=== PATIENT | female | born 1965 | race Caucasian/White ===

== ENCOUNTER → 2018-01-18 | Outpatient (CLI) | payer BC ==
--- NOTE | 2018-01-27 12:20 | MM ---
Reason for exam: additional evaluation requested from prior study. Last mammogram was performed 1 year and 5 months ago. History: Patient history of breast cancer. Family history of breast cancer in maternal aunt and breast cancer in maternal cousin. Benign excisional biopsy of the left breast, 2016. Lumpectomy of the left breast, 2010. Lumpectomy of the right breast, 2009. Chemotherapy, 2009. Taking hormonal contraceptives for 35 years. Physical Findings: Nurse did not find any significant physical abnormalities on exam. MG 3D Diag Mammo W/Cad APOLINAR Bilateral CC and MLO view(s) were taken. Prior study comparison: August 03, 2016, mammogram, performed at [place]. July 31, 2016, mammogram, performed at [place]. The breast tissue is heterogeneously dense. This may lower the sensitivity of mammography. Nodular density upper outer quadrant left breast. These results were verbally communicated with the patient on 01/26/18. ASSESSMENT: Incomplete: need additional imaging evaluation, BI-RAD 0 RECOMMENDATION: Ultrasound of the left breast. [facility] will attempt to contact patient to return for ultrasound.
== END | disposition home or self-care (01) ==
LOC: RADMAMWWP 10:50
PROVIDERS: ATTEND Family Medicine
DX: C50.411 Malignant neoplasm of upper-outer quadrant of right female breast (principal)
CPT/HCPCS: 77062; 77066

== ENCOUNTER → 2018-02-08 | Outpatient (CLI) | payer BC ==
--- NOTE | 2018-02-08 10:55 | USB ---
Reason for exam: additional evaluation requested from abnormal screening. History: Patient history of breast cancer. Family history of breast cancer in maternal aunt and breast cancer in maternal cousin. Benign excisional biopsy of the left breast, 2016. Lumpectomy of the left breast, 2010. Lumpectomy of the right breast, 2009. Chemotherapy, 2009. Taking hormonal contraceptives for 35 years. US Breast Workup Limited LT Right limited breast ultrasound including focal area of concern, retroareolar and axilla demonstrates a 6 x 4 x 5mm oval, cystic lesion at 3 o'clock, benign, corresponds to the mammographic finding. These results were verbally communicated with the patient and result sheet given to the patient on 02/08/18. ASSESSMENT: Benign, BI-RAD 2 RECOMMENDATION: Routine screening mammogram of both breasts in 1 year.
== END | disposition home or self-care (01) ==
LOC: RADUSWWP 09:44
PROVIDERS: ATTEND Family Medicine
DX: R92.8 Other abnormal and inconclusive findings on diagnostic imaging of breast (principal)

== ENCOUNTER 2018-03-09 09:10 | Day surgery (SDC) | payer BC ==
[2018-03-08 09:10] VITALS: BMI 30.2
[~2018-03-09 09:10] MED LIST: LACTATED RINGERS 1,000 ML IV SCH
[2018-03-09 10:17] VITALS: TEMP 97.6
[2018-03-09] MEDS ORDERED: LIDOCAINE 1% 20 ML VIAL (10MG/ML) FOR IV START INTRADERMA ONE (10:30)
[2018-03-09] MEDS ORDERED: LIDOCAINE 1% INJ 10MG/ML (20 ML MDV) ONE (10:40)
[2018-03-09] MEDS ORDERED: PROPOFOL 10 MG/ML 20 ML VIAL IV ONE (10:40)
--- NOTE | 2018-03-09 10:51 | P.PCN ---
Date of Procedure: 03/09/18 Procedure(s) Performed: BRIEF HISTORY: Patient is a 53-year-old, pleasant, white female, scheduled for an upper endoscopy as a part of evaluation of long-standing history of GERD and Reeves's esophagus diagnosed several years ago when she was living in [place]. For the last few months she is been having worsening symptoms as she has been off the Prilosec which she was on for almost 10 years. She also completed severe intermittent dysphagia to solids.. PROCEDURE PERFORMED: Esophagogastroduodenoscopy with biopsy. PREOPERATIVE DIAGNOSIS: GERD/intermittent dysphagia to solids/history of Reeves 's esophagus. IV sedation per anesthesia. PROCEDURE: After informed consent was obtained, the patient was brought into the endoscopy unit. IV sedation was administered by Anesthesia under continuous monitoring. Initially the Olympus GIF-140 video endoscope was inserted into the mouth. Esophagus intubated without any difficulty. It was gradually advanced into the stomach and duodenum and carefully examined. The bulb and the second part of the duodenum appeared normal. The scope at this time was withdrawn to the stomach, adequately insufflated with air, and upon careful examination, mucosa of the antrum, body, cardia and the fundus appeared normal. The scope was then withdrawn into the esophagus. The GE junction was located at 35 cm from the incisors. They revealed linear erosions and one superficial ulceration at the GE junction consistent with LA grade C reflux esophagitis. There was early esophagus which are identified which did not impede the passage of the scope. Biopsies were done from the distal esophagus. The rest of the esophagus appeared normal. There was no evidence of Reeves's esophagus. Patient tolerated the procedure well. IMPRESSION: 1. Linear erosions with a superficial ulceration in the distal esophagus consistent with LA grade C reflux esophagitis. 2. Small hiatal hernia and early esophageal stricture. RECOMMENDATIONS: The findings of this examination were discussed with the patient as well as a family. She was advised to follow with the biopsy results. She will continue with Prilosec 20 mg twice daily and follow antireflux measures.. She will be seen in office in 2 months
[2018-03-09 11:04] VITALS: RESP 16
[2018-03-09 11:59] VITALS: BP 119/82; PULSE 74
== END 2018-03-09 12:07 | disposition home or self-care (01) ==
LOC: ORWHC2ENDO 09:10
PROVIDERS: ATTEND Internal Medicine Gastroenterology
DX: K22.10 Ulcer of esophagus without bleeding (principal); K21.0 Gastro-esophageal reflux disease with esophagitis; K44.9 Diaphragmatic hernia without obstruction or gangrene; K22.2 Esophageal obstruction; Z79.3 Long term (current) use of hormonal contraceptives; Z87.19 Personal history of other diseases of the digestive system
CPT/HCPCS: 81025; 88305; 43239; J2001; J2704

== ENCOUNTER 2019-01-27 10:21 | Day surgery (SDC) | payer BC ==
[2019-01-25 14:41] VITALS: BMI 30.9
[~2019-01-27 10:21] MED LIST changes: +LIDOCAINE 1% 20 ML VIAL (10MG/ML) FOR IV START INTRADERMA PRN
[2019-01-27 10:36] VITALS: TEMP 97.8
[2019-01-27] MEDS ORDERED: LACTATED RINGERS 1,000 ML IV ONE (10:36)
[2019-01-27] MEDS ORDERED: PROPOFOL 10 MG/ML 20 ML VIAL IV ONE (11:19)
--- NOTE | 2019-01-27 12:06 | P.PCN ---
Date of Procedure: 01/27/19 Procedure(s) Performed: BRIEF HISTORY: Patient is a 54-year-old, pleasant, white female, scheduled for an upper endoscopy as a part of evaluation of long-standing history of GERD for 10 years duration. She is been on Prevacid 20 mg daily and was doing well. She was also diagnosed with Reeves's esophagus while and upon your but 5 years ago. She is scheduled for repeat upper endoscopy to evaluate further.. PROCEDURE PERFORMED: Esophagogastroduodenoscopy with biopsy. PREOPERATIVE DIAGNOSIS: Long-standing history of GERD. IV sedation per anesthesia. PROCEDURE: After informed consent was obtained, the patient was brought into the endoscopy unit. IV sedation was administered by Anesthesia under continuous monitoring. Initially the Olympus GIF-140 video endoscope was inserted into the mouth. Esophagus intubated without any difficulty. It was gradually advanced into the stomach and duodenum and carefully examined. The bulb and the second part of the duodenum appeared normal. The scope at this time was withdrawn to the stomach, adequately insufflated with air, and upon careful examination, mucosa of the antrum had mild gastritis and biopsies were done from this area. The, body, cardia and the fundus appeared normal. The scope was then withdrawn into the esophagus. Small hiatal hernia noted. The GE junction was located at 39 cm from the incisors. The esophagus appeared normal. There were no erosions or ulcerations seen and the patient tolerated the procedure well. IMPRESSION: 1. Small sliding Hiatal hernia but no evidence of esophagitis or Reeves's esophagus. 2. Mild antral gastritis. RECOMMENDATIONS: The findings of this examination were discussed with the patient as well as a family. She will follow with the biopsy results. She was advised to continue with Prilosec 20 mg daily and follow antireflux measures.
[2019-01-27] MEDS ORDERED: MIDAZOLAM 2 MG/2 ML VIAL IV ONE ×2 (12:15)
[2019-01-27 12:17] VITALS: RESP 16
[2019-01-27 12:35] VITALS: BP 118/77; PULSE 76
== END 2019-01-27 12:46 | disposition home or self-care (01) ==
LOC: ORWHC2ENDO 10:21
PROVIDERS: ATTEND Internal Medicine Gastroenterology
DX: K29.50 Unspecified chronic gastritis without bleeding (principal); K21.0 Gastro-esophageal reflux disease with esophagitis; K44.9 Diaphragmatic hernia without obstruction or gangrene; J45.909 Unspecified asthma, uncomplicated; Z91.040 Latex allergy status; Z91.048 Other nonmedicinal substance allergy status; Z79.899 Other long term (current) drug therapy; Z87.19 Personal history of other diseases of the digestive system
CPT/HCPCS: 81025; 88305; 43239; J2250; J2704

== ENCOUNTER → 2019-03-24 | Outpatient (CLI) | payer BC ==
--- NOTE | 2019-03-24 09:44 | MM ---
Reason for exam: additional evaluation requested from prior study. Last mammogram was performed 1 year and 2 months ago. History: Patient has history of other cancer at age 54 and has history of breast cancer at age 24. Family history of breast cancer in maternal aunt at age 40 and breast cancer in maternal cousin. Benign excisional biopsy of the left breast, 2016. Lumpectomy of the left breast, 2010. Lumpectomy of the right breast, 2009. Chemotherapy, 2009. Took hormonal contraceptives for 35 years. Physical Findings: Nurse did not find any significant physical abnormalities on exam. MG Diagnostic Mammo w CAD APOLINAR Bilateral CC and MLO view(s) were taken. Prior study comparison: January 18, 2018, bilateral MG 3d diag mammo w/cad APOLINAR. August 03, 2016, mammogram, performed at [place]. The breast tissue is heterogeneously dense. This may lower the sensitivity of mammography. Left biopsy marker. These results were verbally communicated with the patient and result sheet given to the patient on 03/24/19. ASSESSMENT: Negative, BI-RAD 1 RECOMMENDATION: Follow-up diagnostic mammogram of both breasts in 1 year.
== END | disposition home or self-care (01) ==
LOC: RADMAMWWP 02-20 16:33
PROVIDERS: ATTEND Obstetrics & Gynecology Obstetrics
DX: Z08 Encounter for follow-up examination after completed treatment for malignant neoplasm (principal); Z85.3 Personal history of malignant neoplasm of breast
CPT/HCPCS: 77066

== ENCOUNTER 2019-10-31 22:49 | Emergency (ER) | payer BC ==
[2019-10-31 23:52] LABS: Basophils # (A) 0.1 k/uL (0-0.2); Basophils % (A) 1 %; Eosinophils # (A) 0.3 k/uL (0-0.7); Eosinophils % (A) 3 %; HCT 42.2 % (34.0-46.0); HGB 13.8 gm/dL (11.4-16.0); Lymphocytes # (A) 3.6 k/uL (1.0-4.8); Lymphocytes % (A) 35 %; MCH 31.6 pg (25.0-35.0); MCHC 32.7 g/dL (31.0-37.0); MCV 96.7 fL (80.0-100.0); Monocytes # (A) 0.6 k/uL (0-1.0); Monocytes % (A) 5 %; Neutrophils # (A) 5.6 k/uL (1.3-7.7); Neutrophils % (A) 54 %; Platelet Count 327 k/uL (150-450); RBC 4.36 m/uL (3.80-5.40); RDW 13.8 % (11.5-15.5); WBC 10.3 k/uL (3.8-10.6)
[2019-11-01 00:01] LABS: Appearance,Urine Clear (Clear); Bacteria,Urine Rare /hpf; Bilirubin,Urine Negative (Negative); Blood,Urine Negative (Negative); Color,Urine Colorless; Glucose,Urine (UA) Negative (Negative); Ketones,Urine Negative (Negative); Leukocyte Esterase,Urine Trace (Negative); Mucus,Urine Rare /hpf; Nitrite,Urine Negative (Negative); PH, Urine 5.5 (5.0-8.0); Protein,Urine Negative (Negative); Specific Gravity,Urine 1.002 (1.001-1.035); Squamous Epithelial Cell,Urine <1 /hpf (0-4); Urobilinogen,Urine <2.0 mg/dL (<2.0); WBC,Urine 1 /hpf (0-5)
[2019-11-01 00:04] LABS: ALT 37 U/L (4-34); AST 39 U/L (14-36); Acetaminophen <10.0 ug/mL; African American GFR (CKD) 73 (>60 ml/min/1.73 sqM); Albumin 4.8 g/dL (3.5-5.0); Alkaline Phosphatase 101 U/L (38-126); Anion Gap 13 mmol/L; Blood Urea Nitrogen 11 mg/dL (7-17); Carbon Dioxide 22 mmol/L (22-30); Chloride 107 mmol/L (98-107); Glucose 94 mg/dL (74-99); Non-African American GFR(CKD) 63 (>60 ml/min/1.73 sqM); Potassium 3.7 mmol/L (3.5-5.1); Salicylate <1.0 mg/dL; Sodium 142 mmol/L (137-145); Total Bilirubin 0.3 mg/dL (0.2-1.3); Total Protein 7.8 g/dL (6.3-8.2)
--- NOTE | 2019-11-01 00:05 | ED ---
Psych HPI - General Chief Complaint: Psychiatric Symptoms Stated Complaint: petition Time Seen by Provider: 10/31/19 23:01 Source: patient Mode of arrival: ambulatory - History of Present Illness Initial Comments: Janee is a 54-year-old female who is brought to the ER today by police. Patient is petitioned for psychiatric evaluation due to depression and alcohol abuse. Per the patient's daughter patient has a history of depression and past and recently has been more depressed. Patient's has been laid off from his job and they're moving out of state. She's been under a lot of stress trying to plan for this. She states she has been drinking more than usual. She states that she does feel somewhat upset over everything but feels that she's been coping well she has been looking for a job in [place] where they plan to move. She states that she was trying to talk to her daughter aracely who is 26 years old and still lives at home about her family's plan to move the daughter became agitated and [place] and refused to continue talking to her at which time patient became upset and began drinking. Patient states she then became very emotional and told her daughter she felt like daughter does not care whether or not she lives or dies at that time the daughter contacted police who brought her to the hospital for psychiatric evaluation. Patient denies any suicidal or homicidal thoughts. - Related Data Home Medications Medication Instructions Recorded Confirmed Omeprazole 20 mg PO BID 01/25/19 01/25/19 Allergies Allergy/AdvReac Type Severity Reaction Status Date / Time adhesive Allergy BLISTERS Verified 10/31/19 22:58 Latex, Natural Rubber Allergy BLISTERS Verified 10/31/19 22:58 Review of Systems ROS Statement: Those systems with pertinent positive or pertinent negative responses have been documented in the HPI. ROS Other: All systems not noted in ROS Statement are negative. Past Medical History Past Medical History: Cancer Additional Past Medical History / Comment(s): CHAVES'S ESOPHAGUS. HX BREAST CANCER-BILAT History of Any Multi-Drug Resistant Organisms: None Reported Past Surgical History: Breast Surgery Additional Past Surgical History / Comment(s): BILAT AXILLA LYMPH NODES AND LUMPECTOMIES. EGD/COLONOSCOPY, Past Anesthesia/Blood Transfusion Reactions: No Reported Reaction Past Psychological History: Anxiety Smoking Status: Never smoker Past Alcohol Use History: Occasional Past Drug Use History: None Reported - Past Family History Sister(s) Family Medical History: Cancer Daughter(s) Family Medical History: Cancer General Exam - General Exam Comments Initial Comments: Physical Exam GENERAL: Patient is well-developed and well-nourished. Patient is nontoxic and well-hydrated and is in no distress. HENT: Normocephalic, Atraumatic. EYES: PERRL, EOMI PULMONARY: Unlabored respirations. CARDIOVASCULAR: RRR Warm and well perfused extremities ABDOMEN: Non-distended SKIN: No rashes or bruising : Deferred NEUROLOGIC: Alert and oriented Normal speech Normal gait MUSCULOSKELETAL: Moving all extremities with no apparent injury PSYCHIATRIC: Tearful, apologetic Suicidal or homicidal ideations, no psychosis or kiah Limitations: no limitations Course Vital Signs 10/31/19 22:54 Temperature 98.5 F Pulse Rate 94 Respiratory 18 Rate Blood Pressure 160/100 O2 Sat by Pulse 98 Oximetry Medical Decision Making - Medical Decision Making The patient was seen and evaluated, history was obtained from the patient and review of the petitioned by her daughter Patient with a distant history of depression currently undergoing some significant stress she has been drinking heavily lately, she had a disagreement with her daughter who then petitioned her Patient was evaluated by EPS upon sobriety who do not feel the patient is a threat to herself or others. They do recognize patient is under significant stress, she was given referral for outpatient resources. Patient care plan was discussed with patient's who also feels the patient is safe for discharge home. He will remove any weapons from the house. Patient comfortable with plan for discharge home - Lab Data Result diagrams: 10/31/19 23:33 10/31/19 23:33 Lab Results 10/31/19 10/31/19 10/31/19 Range/Units 23:33 23:33 23:33 WBC 10.3 (3.8-10.6) k/uL RBC 4.36 (3.80-5.40) m/uL Hgb 13.8 (11.4-16.0) gm/dL Hct 42.2 (34.0-46.0) % MCV 96.7 (80.0-100.0) fL MCH 31.6 (25.0-35.0) pg MCHC 32.7 (31.0-37.0) g/dL RDW 13.8 (11.5-15.5) % Plt Count 327 (150-450) k/uL Neutrophils % 54 % Lymphocytes % 35 % Monocytes % 5 % Eosinophils % 3 % Basophils % 1 % Neutrophils # 5.6 (1.3-7.7) k/uL Lymphocytes # 3.6 (1.0-4.8) k/uL Monocytes # 0.6 (0-1.0) k/uL Eosinophils # 0.3 (0-0.7) k/uL Basophils # 0.1 (0-0.2) k/uL Sodium 142 (137-145) mmol/L Potassium 3.7 (3.5-5.1) mmol/L Chloride 107 (98-107) mmol/L Carbon Dioxide 22 (22-30) mmol/L Anion Gap 13 mmol/L BUN 11 (7-17) mg/dL Creatinine 1.02 (0.52-1.04) mg/dL Est GFR (CKD-EPI)AfAm 73 (>60 ml/min/1.73 sqM) Est GFR (CKD-EPI)NonAf 63 (>60 ml/min/1.73 sqM) Glucose 94 (74-99) mg/dL Calcium 10.0 (8.4-10.2) mg/dL Total Bilirubin 0.3 (0.2-1.3) mg/dL AST 39 H (14-36) U/L ALT 37 H (4-34) U/L Alkaline Phosphatase 101 (38-126) U/L Total Protein 7.8 (6.3-8.2) g/dL Albumin 4.8 (3.5-5.0) g/dL Urine Color Colorless Urine Appearance Clear (Clear) Urine pH 5.5 (5.0-8.0) Ur Specific Josephine 1.002 (1.001-1.035) Urine Protein Negative (Negative) Urine Glucose (UA) Negative (Negative) Urine Ketones Negative (Negative) Urine Blood Negative (Negative) Urine Nitrite Negative (Negative) Urine Bilirubin Negative (Negative) Urine Urobilinogen <2.0 (<2.0) mg/dL Ur Leukocyte Esterase Trace H (Negative) Urine WBC 1 (0-5) /hpf Ur Squamous Epith Cells <1 (0-4) /hpf Urine Bacteria Rare H (None) /hpf Urine Mucus Rare H (None) /hpf Salicylates <1.0 mg/dL Urine Opiates Screen Not Detected (NotDetected) Ur Oxycodone Screen Not Detected (NotDetected) Urine Methadone Screen Not Detected (NotDetected) Ur Propoxyphene Screen Not Detected (NotDetected) Acetaminophen <10.0 ug/mL Ur Barbiturates Screen Not Detected (NotDetected) U Tricyclic Antidepress Not Detected (NotDetected) Ur Phencyclidine Scrn Not Detected (NotDetected) Ur Amphetamines Screen Not Detected (NotDetected) U Methamphetamines Scrn Not Detected (NotDetected) U Benzodiazepines Scrn Not Detected (NotDetected) Urine Cocaine Screen Not Detected (NotDetected) U Marijuana (THC) Screen Not Detected (NotDetected) Serum Alcohol 145 mg/dL Disposition Clinical Impression: Alcohol intoxication Disposition: HOME SELF-CARE Condition: Stable Additional Instructions: As we discussed, you will benefit from refraining from alcohol use You can call the crisis line or 911 if you are feeling depressed Return to the ER if you have any thoughts of hurting yourself or others or you develop any new or concerning symptoms Is patient prescribed a controlled substance at d/c from ED?: No Referrals: Rio Dueñas MD [Primary Care Provider] - 1-2 days
[2019-11-01 00:08] LABS: Amphetamine Screen,Urine Not Detected (NotDetected); Barbiturate Screen,Urine Not Detected (NotDetected); Benzodiazepines Screen,Urine Not Detected (NotDetected); Cocaine Screen,Urine Not Detected (NotDetected); Methadone Screen, Urine Not Detected (NotDetected); Opiate Screen,Urine Not Detected (NotDetected); Oxycodone Screen, Urine Not Detected (NotDetected); Phencyclidine Screen,Urine Not Detected (NotDetected); Tricyclic Antidepressant,Urine Not Detected (NotDetected); Urn Cannabinoid Scrn Not Detected (NotDetected)
[2019-11-01 00:10] LABS: Alcohol 145 mg/dL
[2019-11-01 05:04] VITALS: BP 133/92; PULSE 84; RESP 16; TEMP 98.9
== END 2019-11-01 05:01 | disposition home or self-care (01) ==
LOC: EC 22:49
DX: F10.129 Alcohol abuse with intoxication, unspecified (principal); Y90.9 Presence of alcohol in blood, level not specified; F32.9 Major depressive disorder, single episode, unspecified; K22.70 Barrett's esophagus without dysplasia; Z79.899 Other long term (current) drug therapy; Z91.040 Latex allergy status; Z91.048 Other nonmedicinal substance allergy status; Z85.3 Personal history of malignant neoplasm of breast
CPT/HCPCS: 36415; 80053; 80306; 80320; 80329; 81001; 83520; 85025; 99284